=== PATIENT | male | born 1960 | race Caucasian/White ===

== ENCOUNTER 2016-08-31 22:56 | Emergency (ER) | payer OTHER ==
[2016-08-31] MEDS ORDERED: 0.9% Sodium Chloride 1,000 ML IV ONE (23:12)
[2016-08-31] MEDS ORDERED: Ketorolac 15 mg/mL Inj IVPUSH ONE (23:15)
[2016-08-31 23:21] LABS: BASOPHILS % (AUTO) 0.2 % (0-3); EOSINOPHILS % (AUTO) 3.8 % (0-5); MONOCYTES % (AUTO) 10.9 % (4-12); Mean Corpuscular Hemoglobin 30.5 pg (27.0-35.0); Mean Corpuscular Volume 88.1 fL (81-100); NEUTROPHILS % (AUTO) 53.8 % (40-74); Platelet Count 257 bil/L (150-400)
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
[2016-08-31 23:48] LABS: Magnesium 2.3 mg/dL (1.6-2.6)
[2016-09-01] MEDS ORDERED: Ondansetron 2 mg/mL 2 mL Inj IVPUSH PRN (00:25)
[2016-09-01] MEDS: HYDROmorphone 0.5 mg/0.5 mL iSecure Syringe IVPUSH PRN ×3 (00:39→03:14)
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
== END 2016-09-01 05:55 | disposition home or self-care (01) ==
LOC: SED 22:56 → EDUNIT# 22:56 → EDBD 22:56 → SED 09-01 05:55
DX: S01.01XA Laceration without foreign body of scalp, initial encounter (principal); S41.111A Laceration without foreign body of right upper arm, initial encounter; S20.311A Abrasion of right front wall of thorax, initial encounter; S20.419A Abrasion of unspecified back wall of thorax, initial encounter; Y92.018 Other place in single-family (private) house as the place of occurrence of the external cause; X99.1XXA Assault by knife, initial encounter; Y93.89 Activity, other specified; Y99.8 Other external cause status
CPT/HCPCS: 12005; 70450; 80053; 83735; 85025; 93005; 96374; 96375; 96376; 99285; G0390; J1170; J1885; J2060; J2405; J7030